=== PATIENT | male | born 1990 | race Two or more races ===

== ENCOUNTER 2024-04-20 18:12 | Emergency (ER) | payer BC, OTHER ==
[~2024-04-20] VITALS: Ht 167.6 cm; Wt 77.7 kg
[2024-04-20] MEDS: KETOROLAC TROMETH 60MG/2ML VIAL IM ONE (18:41)
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
[2024-04-20] MEDS: IBUPROFEN 800 MG TAB PO ONE (18:50)
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
[2024-04-20] MEDS ORDERED: IBUP-1456 PO (20:07)
[2024-04-20 21:00] VITALS: BP 123/76; PULSE 68; RESP 18; TEMP 97.7; O2SAT 100
== END 2024-04-20 21:03 | disposition home or self-care (01) ==
LOC: ER 18:12
DX: S62.114A Nondisplaced fracture of triquetrum [cuneiform] bone, right wrist, initial encounter for closed fracture (principal); S13.4XXA Sprain of ligaments of cervical spine, initial encounter; S80.01XA Contusion of right knee, initial encounter; V89.2XXA Person injured in unspecified motor-vehicle accident, traffic, initial encounter; Y93.89 Activity, other specified; Y92.89 Other specified places as the place of occurrence of the external cause; Y99.8 Other external cause status
CPT/HCPCS: 29125; 72040; 73110; 73562; 99284; J1885